=== PATIENT | female | born 1985 | race Caucasian/White ===

== ENCOUNTER 2017-11-18 16:50 | Outpatient (CLI) | payer OTHER ==
--- NOTE | 2017-11-18 17:28 | Non Stress Test Report ---
Non Stress Test Datetime Report Generated by CPN: 11/18/2017 17:27 DEMOGRAPHIC EGA NST: 36.6 INDICATION Indication for Study: Ordered by Provider MONITORING Monitor Explained: Monitor Explained; Test Explained; Patient Verbalized Understanding Time on Monitor: 11/18/2017 17:00 Time off Monitor: 11/18/2017 17:24 NST Duration: 24 NST INTERVENTIONS NST Interventions: PO Hydration; Reposition Patient Physician Notified NST: Dr. Luciano BABY A: [id number] BABY A Movement : Present Contraction Frequency : x1 FHR Baseline : 135 Accelerations : 15X15 Decelerations : None Variability : Moderate 6-25bpm NST Review: Meets Criteria for Reactive NST NST Review and Verified By : MERT Castañeda Results: Reactive NST REPORT Report Trigger: Send Report
== END 2017-11-18 17:28 | disposition home or self-care (01) ==
LOC: LC 16:50
PROVIDERS: ATTEND Student in an Organized Health Care Education/Training Program
PROC: 4A1HXCZ Monitoring of Products of Conception, Cardiac Rate, External Approach (ICD-10-PCS; principal; 2017-11-18)
DX: O24.419 Gestational diabetes mellitus in pregnancy, unspecified control (principal); O99.333 Smoking (tobacco) complicating pregnancy, third trimester; F17.210 Nicotine dependence, cigarettes, uncomplicated; Z3A.36 36 weeks gestation of pregnancy
CPT/HCPCS: 59025

== ENCOUNTER 2017-11-26 16:00 | Outpatient (CLI) | payer OTHER ==
--- NOTE | 2017-11-26 16:54 | Non Stress Test Report ---
Non Stress Test Datetime Report Generated by CPN: 11/26/2017 16:54 DEMOGRAPHIC EGA NST: 38.0 INDICATION Indication for Study: Other Indication for Study (NST) Other: Gestational diabetes VITAL SIGNS Temperature - NST: 98.4 RESP - NST: 18 MONITORING Monitor Explained: Monitor Explained; Test Explained; Patient Verbalized Understanding Time on Monitor: 11/26/2017 16:09 NST INTERVENTIONS NST Interventions: PO Hydration; Reposition Patient Physician Notified NST: C. Moss, CNM BABY A: [id number] BABY A Movement : Present Contraction Frequency : irritability FHR Baseline : 130 Accelerations : 15X15 Decelerations : None Variability : Moderate 6-25bpm NST Review: Meets Criteria for Reactive NST NST Review and Verified By : Terrie Camp RNC NST Results: Reactive NST COMMENTS NST Comments: Provider reviewed strip NST REPORT Report Trigger: Send Report
== END 2017-11-26 16:58 | disposition home or self-care (01) ==
LOC: LC 16:00
PROVIDERS: ATTEND Obstetrics & Gynecology
PROC: 4A1HXCZ Monitoring of Products of Conception, Cardiac Rate, External Approach (ICD-10-PCS; principal; 2017-11-26)
DX: O24.415 Gestational diabetes mellitus in pregnancy, controlled by oral hypoglycemic drugs (principal); Z3A.38 38 weeks gestation of pregnancy
CPT/HCPCS: 59025

== ENCOUNTER 2017-12-03 06:46 | Inpatient (IN) | payer OTHER ==
[2017-12-03] MEDS ORDERED: RINGERS SOLUTION,LACTATED 1,000 ML IV PRN (06:59)
[2017-12-03] MEDS ORDERED: PENICILLIN G POTASSIUM 5,000,000 UNIT in DEXTROSE 5%-WATER 100 ML IV ONE (06:59)
[2017-12-03] MEDS ORDERED: RINGERS SOLUTION,LACTATED 300 ML IV ONE (06:59)
[2017-12-03 07:13] LABS: ABSOLUTE BASOPHILS # (AUTO) 0.1 10^3/uL (0.0-0.2); ABSOLUTE EOSINOPHILS # (AUTO) 0.1 10^3/uL (0.0-0.6); ABSOLUTE LYMPHOCYTES (AUTO) 3.3 10^3/uL (0.5-4.7); ABSOLUTE MONOCYTES (AUTO) 0.6 10^3/uL (0.1-1.4); ABSOLUTE NEUT (AUTO) 13.8 10^3/uL (1.7-8.2); BASOPHILS % (AUTO) 0.6 % (0-2); EOSINOPHILS % (AUTO) 0.8 % (0-6); HEMATOCRIT 38.8 % (36.0-47.0); LYMPHOCYTES % (AUTO) 18.5 % (13-45); MEAN CORPUSCULAR HEMOGLOBIN 29.4 pg (27.0-33.4); MEAN CORPUSCULAR HGB CONC 33.6 g/dL (32.0-36.0); MEAN CORPUSCULAR VOLUME 88 fl (80-97); MONOCYTES % (AUTO) 3.2 % (3-13); PLATELET COUNT 329 10^3/uL (150-450); RED BLOOD COUNT 4.43 10^6/uL (3.72-5.28); RED CELL DISTRIBUTION WIDTH 14.4 % (11.5-14.0); SEGMENTED NEUTROPHILS % (AUTO) 76.9 % (42-78); TOTAL CELLS COUNTED % (AUTO) 100 %
[2017-12-03] MEDS ORDERED: PENICILLIN G-K 5 MILLION UNIT VIAL IV ONE (07:30)
[2017-12-03 08:20] LABS: APPEARANCE,URINE SLIGHTLY-CLOUDY; BILIRUBIN,URINE NEGATIVE (NEGATIVE); COLOR,URINE YELLOW; GLUCOSE, URINE NEGATIVE (NEGATIVE); KETONES,URINE NEGATIVE (NEGATIVE); LEUKOCYTE ESTERASE,URINE TRACE (NEGATIVE); NITRITE,URINE NEGATIVE (NEGATIVE); PROTEIN,URINE NEGATIVE (NEGATIVE); URINE SPECIFIC GRAVITY 1.011; UROBILINOGEN,URINE NEGATIVE mg/dL (<2.0)
[2017-12-03 08:40] LABS: URINE AMPHETAMINES SCREEN NEGATIVE; URINE BARBITURATES SCREEN NEGATIVE; URINE BENZODIAZEPINES SCREEN NEGATIVE; URINE COCAINE SCREEN NEGATIVE; URINE MARIJUANA (THC) SCREEN NEGATIVE; URINE METHADONE SCREEN NEGATIVE; URINE PHENCYCLIDINE SCREEN NEGATIVE
[2017-12-03] MEDS ORDERED: OXYTOCIN/NORMAL SALINE 40 UNIT/2,000 ML RTUINJ ONE (08:54)
[2017-12-03] MEDS ORDERED: LIDOCAINE 1% INJ-PF (10 MG/ML) 30 ML SDV ONE (08:54)
[2017-12-03] MEDS ORDERED: MISOPROSTOL 0.2 MG TABLET ONE (08:54)
[2017-12-03] MEDS ORDERED: PENICILLIN G-K 5 MILLION UNIT VIAL ONE ×3 (09:09→17:44)
[2017-12-03] MEDS: OXYTOCIN/NORMAL SALINE 20 UNIT/1,000 ML RTUINJ IV PRN ×2 (09:35→21:41)
[2017-12-03] MEDS ORDERED: PENICILLIN G POTASSIUM 2,500,000 UNIT in DEXTROSE 5%-WATER 50 ML IV SCH (11:01)
--- NOTE | 2017-12-03 13:47 | L&D Progress Notes ---
PROGRESS NOTES Datetime Report Generated by CPN: 12/03/2017 13:46 PROGRESS NOTE Impression: Reassuring Heart Rate Procedures: Artificial ROM; Sterile Vag Exam Plan: Continue Present Management Vital Signs : Reviewed; Within Normal Limits Comment: SVE with AROM without difficulty. Cervix firm. Continue with IOL. VAGINAL EXAM Dilatation: 2 Dilatation: 2 Effacement: 80 Effacement: 80 Station: -2 Station: -1 MEMBRANES Membranes: Ruptured Membranes: Intact Amniotic Fluid Color: Clear FETUS A FHR - Baseline: 130 Monitoring: External US Accelerations: 15X15 FHR Category: Category I : 39.0 Presentation: Vertex SIGNATURE SIGNATURE: [id number] SIGNATURE: [id number] SIGNATURE: [id number] Assignment: Stefania Luciano MD Signature: with User ID: [email or web address] : with User ID: [email or web address] : I personally evaluated and examined the patient in conjunction with the MLP and agree with the assessment, treatment plan and disposition. : I personally evaluated and examined the patient in conjunction with the MLP and agree with the assessment, treatment plan and disposition.
[2017-12-03] MEDS: PENICILLIN G-K 5 MILLION UNIT VIAL IV SCH ×2 (13:58→17:56)
[2017-12-03] MEDS ORDERED: MAG HYDROX/AL HYDROX/SIMETH SUSP 30 ML UDCUP ONE ×2 (15:27→20:05)
[2017-12-03] MEDS ORDERED: EPHEDRINE SULFATE INJ 50 MG/1 ML AMPULE ONE (16:26)
[2017-12-03] MEDS ORDERED: BUPIVACAINE HCL 0.25 % INJ/PF (2.5 MG/1 ML) 30 ML VIAL ONE (16:26)
[2017-12-03] MEDS ORDERED: FENTANYL/BUPIVACAINE/NS/PF 200 MCG/100 ML RTUINJ EPI ONE (16:26)
[2017-12-03] MEDS ORDERED: LIDOCAINE 2% VISCOUS SOLN 20 ML UDCUP PO ONE (20:00)
[2017-12-03] MEDS ORDERED: MAG HYDROX/AL HYDROX/SIMETH SUSP 30 ML UDCUP PO ONE (20:00)
[2017-12-03] MEDS ORDERED: METOCLOPRAMIDE HCL ORAL SOLN 10 MG/10 ML UDCUP PO ONE (20:00)
[2017-12-03] MEDS ORDERED: BENZOCAINE/MENTHOL AEROSOL SPRAY 56 ML TOP PRN (21:42)
[2017-12-03] MEDS ORDERED: PROMETHAZINE HCL 25 MG SUPP.RECT PR PRN (21:42)
[2017-12-03] MEDS ORDERED: ACETAMINOPHEN WITH CODEINE #3 TABLET PO PRN ×2 (21:42)
[2017-12-03] MEDS ORDERED: OXYTOCIN/NORMAL SALINE 20 UNIT/1,000 ML RTUINJ IV PRN (21:42)
[2017-12-03] MEDS ORDERED: GLYCERIN/WITCH HAZEL LEAF 1 EACH MED..PAD TP PRN (21:42)
[2017-12-03] MEDS ORDERED: PSEUDOEPHEDRINE HCL 30 MG TABLET PO PRN (21:42)
[2017-12-03] MEDS ORDERED: PROMETHAZINE HCL INJ 25 MG/1 ML VIAL IV PRN (21:42)
[2017-12-03] MEDS ORDERED: MAGNESIUM HYDROXIDE SUSP 30 ML UDCUP PO PRN (21:42)
[2017-12-03] MEDS ORDERED: ACETAMINOPHEN 325 MG TABLET PO PRN (21:42)
[2017-12-03] MEDS ORDERED: NA PHOS,M-B/NA PHOS,DI-BA (ADULT) 133 ML ENEMA PR PRN (21:42)
[2017-12-03] MEDS ORDERED: DIBUCAINE 1% OINTMENT 28 GM TP PRN (21:42)
[2017-12-03] MEDS ORDERED: PROMETHAZINE HCL 25 MG TABLET PO PRN (21:42)
[2017-12-03] MEDS ORDERED: ZOLPIDEM TARTRATE 5 MG TABLET PO PRN (21:42)
[2017-12-03] MEDS ORDERED: DIPHENHYDRAMINE HCL 25 MG CAPSULE PO PRN (21:42)
[2017-12-03] MEDS ORDERED: MEASLES,MUMPS&RUBELLA VACC/PF 0.5 ML VIAL SUBCUT PRN (21:42)
[2017-12-03] MEDS ORDERED: MISOPROSTOL 0.2 MG TABLET PR ONE (21:42)
[2017-12-03] MEDS ORDERED: ONDANSETRON 4 MG TAB.RAPDIS PO PRN (22:05)
[2017-12-03] MEDS ORDERED: ONDANSETRON 4 MG TAB.RAPDIS ONE (22:06)
--- NOTE | 2017-12-03 23:06 | Delivery Summary ---
Del Sum A-C Datetime Report Generated by CPN: 12/03/2017 23:06 DELIVERY PERSONNEL DELIVERY PERSONNEL: [id number] Delivery Doctor:: Stefania Luciano MD Anesthesiologist:: Tod Enciso MD Labor and Delivery Nurse:: Jayne Albert RNservice center manager Nurse:: Christina Blunt RN Emergency Dispatcher:: Dr. Fredis Frank/CIVIL ENGINEERING TEACHER: Yulissa Nuno, ST MATERNAL INFORMATION Delivery Anesthesia: Epidural Medications After Delivery: Pitocin Drip 20 Units/1000ml NSS Meds After Delivery Comment: Cytotec 1000 mcg DC Estimated Blood Loss (ml): 500 Maternal Complications: None Provider Comments: VFI delivered in CHELSIE presentation. Loose Nuchal cord. Shoulders and body delivered without difficulty. Cord doubly clamped and cut. Placenta delivered intact spontaneously. FF at U but intermittent uterine atony noted and 1000mcg of cytotec given per rectum. Good hemostasis after repair. Mother and baby stable upon provider leaving the room. LABOR SUMMARY EDC: 12/10/2017 00:00 No. Babies in Womb: 0 Attempted: No Labor Anesthesia: Epidural LABOR INFORMATION Reason for Induction: Maternal Diabetes Onset of Labor: 12/03/2017 14:30 Complete Dilatation: 12/03/2017 20:30 Oxytocin: Induction Group B Beta Strep: Positive Antibiotics # of Doses: 3 Antibiotics Time of Last Dose: 175 Name of Antibiotic Given: Penicillin Steroids Given: None Reason Steroids Not Administered: Not Applicable Other Reason Not Administered: n/a MEMBRANES Membranes Rupture Method: Artificial Rupture of Membranes: 12/03/2017 13:52 Length of Rupture (hr): 7.20 Amniotic Fluid Color: Clear Amniotic Fluid Amount: Small Amniotic Fluid Odor: Normal STAGES OF LABOR Stage 1 hr: 6 Stage 1 min: 0 Stage 2 hr: 0 Stage 2 min: 34 Stage 3 hr: 0 Stage 3 min: 2 Total Time in Labor hr: 6 Total Time in Labor min: 36 VAGINAL DELIVERY Episiotomy: None Laceration #1: Perineal Laceration Extension #1: First Degree Other Laceration: L labial Laceration Repair: Yes Laceration Repair Note: L labial, ML perineal lacearation 1st degree - repaired in the usual fashion. Sponge Count Correct: N/A Sharps Count Correct: N/A CSECTION DELIVERY Primary Indication: N/A Secondary Indication: N/A CSection Incidence: N/A Labor: N/A Elective: N/A CSection Incision: N/A BABY A INFORMATION Infant Delivery Date/Time: 12/03/2017 21:04 Method of Delivery: Vaginal Born in Route : No : N/A Forceps: N/A Vacuum Extraction: N/A Shoulder Dystocia : No PRESENTATION/POSITION BABY A Presentation: Cephalic Cephalic Presentation: Vertex Vertex Position: Right Occipital Anterior Breech Presentation: N/A PLACENTA INFORMATION BABY A Placenta Delivery Time : 12/03/2017 21:06 Placenta Method of Delivery: Spontaneous Placenta Status: Delivered SCORES BABY A Heart Rate 1 min: >100 bpm Resp Effort 1 min: Good Cry Reflex Irritability 1 min: Cough or Sneeze or Pulls Away Muscle Tone 1 min: Active Motion Color 1 min: Blue/Pale Resuscitation Effort 1 min: N/A SCORE 1 MIN: 8 Heart Rate 5 min: >100 bpm Resp Effort 5 min: Good Cry Reflex Irritability 5 min: Cough or Sneeze or Pulls Away Muscle Tone 5 min: Active Motion Color 5 min: Body [place], Extremities Blue Resuscitation Effort 5 min: N/A SCORE 5 MIN: 9 INFANT INFORMATION BABY A Gestational Age at Delivery: 39.0 Gestational Status: Full Term- 39- 40.6 Weeks Outcome : Liveborn Condition : Stable Sex: Female IDENTIFICATION BABY A Verification Date/Time: 12/03/2017 21:19 ID Band Number: [id number] Mother's Name Verified: Yes Infant RN Verifying : Herber Hudson, RNC _ OAcacia Eldridgeel paso, RN WEIGHT/LENGTH BABY A Infant Birthweight (gm): 3340 Weight (lb): 7 Weight (oz): 6 Infant Length (in): 19.50 Infant Length (cm): 49.53 CORD INFORMATION BABY A No. Cord Vessels: 3 Nuchal Cord : Around Neck x1, Loose Cord Blood Taken: Yes-For Eval (Mom's Blood Type - or O+) Suction: Mouth; Nose ASSESSMENT BABY A Infant Complications: None Physical Findings at Delivery: Within Normal Limits Infant Respirations: Appears Normal Skin to Skin: Yes Emergency Dispatcher/ALS Called : No Care By: N. Blunt RN Transferred To: Remains with Mother BABY B INFORMATION : N/A SIGNATURES Signature: with User ID: [email or web address] : I personally evaluated and examined the patient in conjunction with the MLP and agree with the assessment, treatment plan and disposition.
--- NOTE | 2017-12-03 23:18 | Admission Physical ---
Datetime Report Generated by CPN: 12/03/2017 23:18 CURRENT ADMISSION Chief Complaint: Scheduled Induction of Labor Indication for Induction: Maternal Diabetes Indication for Induction: Term, Intrauterine ; Induction of Labor Admit Plan: Admit to Unit; Initiate Labor Induction Protocol ALLERGIES Medication Allergies: No Medication Allergies: latex (12/03/2017) Medication Allergies: latex (11/26/2017) Medication Allergies: latex (08/17/2015) Latex: Latex Allergies Food Allergies: N/A Environmental Allergies: N/A OBSTETRICAL HISTORY EDC: 12/10/2017 00:00 : 2 Para: 0 Term: 0 : 0 SAB: 0 IAB: 0 Ectopic: 0 Livin Cesareans: 0 VBACs: 0 Multiple Births: 0 Gestational Diabetes: Yes Rh Sensitization: No Incompetent Cervix: No AMANDA: No Infertility: No ART Treatment: No Uterine Anomaly: No IUGR: No Hx Previous C/S: No Macrosomia: No Hx Loss/Stillborn: No PIH: No Hx : No Placenta Previa/Abruption: No Depression/PP Depression: No PTL/PROM: No Post Hemorrhage: No Current Procedures: Ultrasound; NST Obstetrical History Comments: G1 - 2014, SAB, 12 weeks (D_C) G2 - Current SEE RECORDS Alcohol: No Marijuana : No Cocaine: No Other Illicit Drugs: No Cigarettes: Smoker, Current Status Unknown. 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 Surgery: No Heart Disease: No Hosp/Surgery: No Autoimmune Disorder: No Anesthetic Complications: No Kidney Disease: No Abnormal Pap Smear: Yes Neuro/Epilepsy: No Psychiatric Disorders: No Other Medical Diseases: No Hepatitis/Liver Disease: No Significant Family History: No Varicosities/Phlebitis: No Trauma/Violence : No Thyroid Dysfunction: No Medical History Comments: Abnormal pap - 2007; D_C 2014; esophagus dilation for pyloric stenosis; GDM on Metformin INFECTIOUS HISTORY Gonorrhea: No Genital Herpes: No Chlamydia: No Tuberculosis: No Syphilis: No Hepatitis: No HIV/AIDS Exposure: No Rash or Viral Illness: No 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 PHYSICAL EXAM General: Normal HEENT: Normal Neurologic: Normal Thyroid: Deferred Heart: Normal Lungs: Normal Breast: Deferred Back: Normal Abdomen: Normal Genitourinary Exam: Deferred Extremities: Normal DTRs: Normal Pelvic Type: Not Done Physical Exam Comments: gravid uterus Vital Signs: Reviewed; Within Normal Limits VAGINAL EXAM Dilatation: 2 Dilatation: 2 Effacement: 80 Effacement: 80 Station: -2 Station: -1 MEMBRANES Membranes: Ruptured Membranes: Intact Amniotic Fluid Color: Clear FETUS A EGA: 39.0 Monitoring: External US FHR- Baseline: 150 Variability: Moderate 6-25bpm Accelerations: 15X15 Decelerations: None FHR Category: Category I Presentation: Vertex Admit Comment: [id number] Metformin Abnormal AFP-positive for Down's; negative Informaseq Positive GBS-treat in labor Obesity IOL for GDM records available Will begin Pitocin when admission completed PLANS FOR LABOR AND DELIVERY Labor and Delivery: None Pain Management: Epidural Feeding Preference: Breast Benefit of Breast Feed Discussed: Yes Circumcision: N/A INFORMED CONSENT Assignment: Stefania Luciano MD Signature: with User ID: Rj : with User ID: [email or web address] : I personally evaluated and examined the patient in conjunction with the MLP and agree with the assessment, treatment plan and disposition. : I personally evaluated and examined the patient in conjunction with the MLP and agree with the assessment, treatment plan and disposition.
[2017-12-04] MEDS: FAMOTIDINE 20 MG TABLET PO SCH ×3 (01:03→21:50)
[2017-12-04] MEDS: IBUPROFEN 800 MG TABLET PO SCH ×4 (01:03→21:51)
[2017-12-04 07:56] LABS: HEMATOCRIT 33.4 % (36.0-47.0); HEMOGLOBIN 11.2 g/dL (12.0-15.5); MEAN CORPUSCULAR HEMOGLOBIN 29.5 pg (27.0-33.4); MEAN CORPUSCULAR HGB CONC 33.4 g/dL (32.0-36.0); MEAN CORPUSCULAR VOLUME 88 fl (80-97); PLATELET COUNT 248 10^3/uL (150-450); RED BLOOD COUNT 3.78 10^6/uL (3.72-5.28); RED CELL DISTRIBUTION WIDTH 14.3 % (11.5-14.0); WHITE BLOOD COUNT 16.9 10^3/uL (4.0-10.5)
[2017-12-04] MEDS: PRENATAL VITAMIN W DHA CAPSULE PO SCH (10:29)
[2017-12-04] MEDS: FERROUS SULFATE 325 MG TABLET PO SCH ×2 (10:29→17:25)
[2017-12-04] MEDS: DOCUSATE SODIUM 100 MG CAPSULE PO SCH ×2 (10:30→17:25)
[2017-12-04] MEDS: SENNOSIDES/DOCUSATE 8.6-50 MG 1 EACH TABLET PO SCH (10:30)
[2017-12-05] MEDS: IBUPROFEN 800 MG TABLET PO SCH ×2 (06:26→13:09)
--- NOTE | 2017-12-05 08:13 | PDOC PROGRESS REPORT ---
Subjective-OB Progress Note for:: 12/05/17 Subjective: Doing well, ready to go home, breast feeding, eating well, voiding, scant bleeding Physical Exam (OB) Vital Signs: Temp Pulse Resp BP Pulse Ox 97.8 F 69 16 128/70 H 99 12/04/17 20:57 12/04/17 20:57 12/04/17 20:57 12/04/17 20:57 12/04/17 20:57 Intake & Output 12/04/17 12/05/17 12/06/17 06:59 06:59 06:59 Intake Total 800 Output Total 1 Balance 799 Weight 100.1 kg - PIH/Pre-Eclampsia DTR's: 2 + Clonus: Negative Headache: Absent Epigastric Pain: No Visual Changes: No - Lochia Lochia Amount: Small 10-25 ml Lochia Color: Rubra/Red - Abdomen Description: Soft, Round Hernia Present: No Fundal Description: Firm, Midline Fundal Height: u/u - u/2 Objective-Diagnostic Laboratory: 12/04/17 07:27 Assessment and Plan(PN) - Assessment and Plan (1) Vaginal delivery Is this a current diagnosis for this admission?: Yes (2) Gestational diabetes mellitus (GDM) controlled on oral hypoglycemic drug Qualifiers: Trimester: second trimester Qualified Code(s): O24.415 - Gestational diabetes mellitus in , controlled by oral hypoglycemic drugs Is this a current diagnosis for this admission?: Yes - Time Spent with Patient Time with patient: Less than 15 minutes Medications reviewed and adjusted accordingly: Yes - Disposition Anticipated Discharge: Home Within: Other - home today
--- NOTE | 2017-12-05 08:18 | PDOC DISCHARGE SUMMARY ---
Final Diagnosis Discharge Date: 12/05/17 - Final Diagnosis (1) Vaginal delivery Is this a current diagnosis for this admission?: Yes Discharge Data - Discharge Medication Home Medications: Vit 10/Iron/Folic/Dha [Vitafol-Ob+Dha Combo Pack] 1 tab PO DAILY Ranitidine HCl [Zantac 150 mg Tablet] 1 tab PO BID 08/17/15 Loratadine [Claritin 10 mg Tablet] 1 tab PO DAILY 11/18/17 Ferrous Sulfate [Feosol 325 mg Tablet] 325 mg PO BID tablet 12/05/17 Glycerin/Witch [place] [Tucks Take-Alongs Pads 1 Each] 1 each TP DAILYP PRN med..pad 12/05/17 Gestational Age: 39 Reason(s) for Admission: Induction of Labor, Gestional Diabetes Procedures: NST, Ultrasound Intrapartum Procedure(s): Spontaneous Vaginal Delivery Complication(s): Laceration-Perineal, Laceration-Labial Laceration-Degree: 1st - Data Baby 1 Female at 1 minute: 8 at 5 minutes: 9 Weight: 3.345 kg Home with Mother: Yes Complications: No - Diagnosis Test Laboratory: Temp Pulse Resp BP Pulse Ox 97.8 F 69 16 128/70 H 99 12/04/17 20:57 12/04/17 20:57 12/04/17 20:57 12/04/17 20:57 12/04/17 20:57 12/03/17 12/03/17 12/04/17 07:02 08:00 07:27 RBC 4.43 3.78 Hgb 13.0 11.2 L Hct 38.8 33.4 L Urine Opiates Screen NEGATIVE - Discharge information/Instructions Discharge Activity: Activity As Tolerated, No Lifting Over 10 Pounds, No Lifting /Push/Pulling, Pelvic Rest Discharge Diet: As Tolerated, Regular Disposition: HOME, SELF-CARE Follow [facility] with: [facility] in: 4, Weeks
[2017-12-05 08:27] VITALS: BP 111/66
[2017-12-05] MEDS: FERROUS SULFATE 325 MG TABLET PO SCH ×2 (10:17→17:25)
[2017-12-05] MEDS: SENNOSIDES/DOCUSATE 8.6-50 MG 1 EACH TABLET PO SCH (10:17)
[2017-12-05] MEDS: DOCUSATE SODIUM 100 MG CAPSULE PO SCH ×2 (10:18→17:27)
[2017-12-05] MEDS: FAMOTIDINE 20 MG TABLET PO SCH (10:18)
[2017-12-05] MEDS: PRENATAL VITAMIN W DHA CAPSULE PO SCH (10:18)
== END 2017-12-05 18:35 | disposition home or self-care (01) | DRG 775 ==
LOC: LR 06:46 → 2S 23:15
PROVIDERS: ADMIT Student in an Organized Health Care Education/Training Program; ATTEND Student in an Organized Health Care Education/Training Program
PROC: 10E0XZZ Delivery of Products of Conception, External Approach (ICD-10-PCS; principal; 2017-12-03)
PROC: 0HQ9XZZ Repair Perineum Skin, External Approach (ICD-10-PCS; 2017-12-03)
PROC: 4A1HXCZ Monitoring of Products of Conception, Cardiac Rate, External Approach (ICD-10-PCS; 2017-12-03)
DX: O24.425 Gestational diabetes mellitus in childbirth, controlled by oral hypoglycemic drugs (principal); O69.81X0 Labor and delivery complicated by cord around neck, without compression, not applicable or unspecified; O99.824 Streptococcus B carrier state complicating childbirth; O70.0 First degree perineal laceration during delivery; O99.334 Smoking (tobacco) complicating childbirth; O99.214 Obesity complicating childbirth; E66.9 Obesity, unspecified; F17.210 Nicotine dependence, cigarettes, uncomplicated; Z3A.39 39 weeks gestation of pregnancy; Z37.0 Single live birth; Z79.84 Long term (current) use of oral hypoglycemic drugs
CPT/HCPCS: 36415; 80307; 81005; 85025; 85027; 86592; 86850; 86900; 86901; J2540; J2590; J3490; S0119